=== PATIENT | female | born 1960 | race American Indian/Alaskan Native ===

== ENCOUNTER 2017-01-10 06:06 | Day surgery (SDC) | payer OTHER ==
[2017-01-10] MEDS ORDERED: XYLOCAINE MPF 2% ONE (07:10)
[2017-01-10] MEDS ORDERED: DIPRIVAN 10 MG/ML IV ONE (07:10)
[2017-01-10] MEDS ORDERED: DILAUDID ONE (07:11)
[2017-01-10] MEDS ORDERED: DECADRON ONE (07:11)
[2017-01-10] MEDS ORDERED: ZOFRAN ONE (07:11)
--- NOTE | 2017-01-10 07:22 | Anesthesia Day of Surgery ---
Anesthesia Day of Surgery - Day of Surgery Patient Examined: Yes Patient H&P Reviewed: Yes Patient is NPO: Yes
--- NOTE | 2017-01-10 07:22 | Anesthesia Consultation ---
Anesthesia Consult and Med Hx Date of service: 01/10/17 - Airway Anesthetic Teeth Evaluation: Good, Partials ROM Head & Neck: Adequate Mental/Hyoid Distance: Adequate Mallampati Class: Class II Intubation Access Assessment: Probably Good - Pulmonary Exam CTA: Yes - Cardiac Exam Cardiac Exam: RRR - Pre-Operative Health Status ASA Pre-Surgery Classification: ASA2 Proposed Anesthetic Plan: General - Endocrine Hx Renal Disease: Yes (kidney stones)
[2017-01-10] MEDS ORDERED: NACL BACTERIOSTATIC INFILTRATI ONE (07:49)
[2017-01-10] MEDS ORDERED: ZOFRAN IV PRN (08:00)
[2017-01-10] MEDS ORDERED: VERSED IV NR (08:00)
[2017-01-10] MEDS ORDERED: LACTATED RINGERS 1,000 ML IV SCH (08:00)
[2017-01-10] MEDS ORDERED: PEPCID PO NR (08:00)
[2017-01-10] MEDS ORDERED: FLAGYL 500 MG/100 ML 500 MG/100 ML BAG IV ONE (08:14)
[2017-01-10] MEDS ORDERED: DILAUDID IV PRN (08:30)
[2017-01-10] MEDS ORDERED: NORCO 5/325 PO PRN (08:30)
[2017-01-10] MEDS ORDERED: ROBINUL ONE (09:23)
[2017-01-10] MEDS ORDERED: NACL 0.9% 1000 ML 1,000 ML ONE (09:36)
[2017-01-10] MEDS ORDERED: WATER FOR IRRIG STERILE IR ONE (09:45)
--- NOTE | 2017-01-10 09:51 | Short Stay Summary ---
Short Stay Documentation Date of service: 01/10/17 - History H&P: obtained from office - Allergies and Medications Current Medications: Allergies codeine Adverse Reaction (Verified 01/10/17 07:19) Nausea Penicillins Adverse Reaction (Verified 01/10/17 07:20) Swelling sulfamethoxazole [From Bactrim] Adverse Reaction (Verified 01/10/17 07:20) Swelling trimethoprim [From Bactrim] Adverse Reaction (Verified 01/10/17 07:20) Swelling Active Medications Acetaminophen/Hydrocodone Bitart ([place] 5/325) 2 each PO ONCE PRN PRN Reason: Pain, Moderate (4-6) Stop: 01/10/17 16:00 Famotidine (Pepcid) 20 mg PO PREOP NR Stop: 01/10/17 21:00 Last Admin: 01/10/17 08:00 Dose: 20 mg Hydromorphone HCl (Dilaudid) 0.5 mg IV Q10MIN PRN PRN Reason: Pain , Severe (7-10) Stop: 01/10/17 15:00 Lactated Ringer's (Lactated Ringers) 1,000 mls @ 100 mls/hr IV DIRECT SAUL Last Admin: 01/10/17 07:55 Dose: 100 mls/hr Midazolam HCl (Versed) 2 mg IV PREOP NR Stop: 01/10/17 23:59 Last Admin: 01/10/17 08:03 Dose: 2 mg Ondansetron HCl (Zofran) 4 mg IV ONCE PRN PRN Reason: Nausea And Vomiting Stop: 01/10/17 16:00 - Brief post op/procedure progress note Date of procedure: 01/10/17 Pre-op diagnosis: lef renal stone Post-op diagnosis: same Procedure: cysto, rpg, left stent, eswl-----staged Anesthesia: GETA Surgeon: CEASAR RAIN Estimated blood loss: none Pathology: none Condition: stable - Hospital course Hospital course: pt has pain & abx med per ,post info on chart - Disposition Condition at discharge: Stable Disposition: DC-01 TO HOME OR SELFCARE Short Stay Discharge Plan Follow up with: MEGHAN JEFFERSON MD [Primary Care Provider] - 7 Days
--- NOTE | 2017-01-10 09:59 | Post Anesthesia Evaluation ---
- Post Anesthesia Evaluation Patient Participated: Yes Airway Patent: Yes Stable Respiratory Function: Yes Temp > 96.8F: Yes Pain Manageable: Yes Adequeate Hydration: Yes Anesthesia Complications: No
--- NOTE | 2017-01-10 10:11 | Operative Report ---
PREOPERATIVE DIAGNOSIS: Left renal stone, 15 mm. POSTOPERATIVE DIAGNOSES: Left renal stone, 15 mm. PROCEDURE PERFORMED: Cystoscopy, left retrograde pyelogram, left double-J stent with a short internal string (6-Estonian 24 cm); left extracorporal shockwave lithotripsy, staged procedure. SURGEON: Nicholas Sumner MD ANESTHESIA: General. ESTIMATED BLOOD LOSS: Minimal. FLUIDS: Crystalloid. COMPLICATIONS: No complications. INDICATIONS: This patient is a 56-year-old female who is seen by Dr. Velazquez in the office with back pain. CT abdomen and pelvis revealed a 15 mm left renal stone. She presents for lithotripsy. Due to the size of her stone, we will place a stent and she was informed that it may be a staged procedure. DESCRIPTION OF PROCEDURE: The patient was taken to the operative suite, placed in a supine position. After adequate general anesthesia, placed in a dorsal lithotomy position, prepped and draped in a sterile fashion. Pancystourethroscopy was performed with a 22 Estonian Storz cystoscope. No bladder pathology. Left retrograde pyelogram was obtained with an 8-Estonian Mentcle catheter and 8 mL of contrast. No filling defects or obstruction in the ureter, obvious stone in the lower pole. A 0.035 Glidewire was placed followed by 6-Estonian, 24 cm double-J stent with a short string. Bladder was drained. The patient was then positioned supinely, stone was localized in the 2 planes. Extracorporal shock wave lithotripsy was administered with a maximum kV of 5 and 3000 shocks. Renal pause after 200 shocks. There was some fragmentation of her stone. She tolerated the procedure well. She was extubated and taken to recovery room. JOB# [id number] CHARLIE/ZENAIDA
[2017-01-10 11:04] VITALS: BP 120/78
== END 2017-01-10 11:40 | disposition home or self-care (01) ==
LOC: OR 06:06
PROVIDERS: ATTEND Urology
DX: N20.0 Calculus of kidney (principal); F32.9 Major depressive disorder, single episode, unspecified; I10 Essential (primary) hypertension; Z98.84 Bariatric surgery status; Z87.440 Personal history of urinary (tract) infections; Z98.890 Other specified postprocedural states; Z79.899 Other long term (current) drug therapy; Z88.1 Allergy status to other antibiotic agents; Z88.5 Allergy status to narcotic agent; Z88.0 Allergy status to penicillin
CPT/HCPCS: 50590; 52332; A4217; C1758; C1769; C2617; J1100; J1170; J2250; J2405; J2704; J7030; J7120; Q9967

== ENCOUNTER 2017-04-11 09:08 | Day surgery (SDC) | payer OTHER ==
[2017-04-11] MEDS ORDERED: NACL BACTERIOSTATIC INFILTRATI ONE (09:51)
[2017-04-11] MEDS ORDERED: GARAMYCIN/NS 120MG/100ML 120 MG/100 ML BAG IV ONE (10:00)
[2017-04-11] MEDS ORDERED: CLEOCIN 600 MG/50 mL 600 MG/50 ML BAG IV NR ×2 (10:00→10:30)
[2017-04-11 10:08] LABS: Hematocrit 37.2 % (30.3-42.9); Hemoglobin 12.3 gm/dl (10.1-14.3)
[2017-04-11] MEDS ORDERED: NACL 0.9% 1000 ML 1,000 ML IV SCH (10:15)
--- NOTE | 2017-04-11 10:24 | Anesthesia Consultation ---
Anesthesia Consult and Med Hx Date of service: 04/11/17 - Airway Anesthetic Teeth Evaluation: Good ROM Head & Neck: Adequate Mental/Hyoid Distance: Adequate Mallampati Class: Class II Intubation Access Assessment: Good - Pulmonary Exam CTA: Yes - Cardiac Exam Cardiac Exam: No Murmur - Pre-Operative Health Status ASA Pre-Surgery Classification: ASA2 Proposed Anesthetic Plan: General - Pulmonary Hx Smoking: No Hx Asthma: No Hx Sleep Apnea: No (CAROL ANN PRE SCREEN LOW RISK) - Cardiovascular System Hx Hypertension: No - Central Nervous System Hx Psychiatric Problems: Yes (insomnia) - Endocrine Hx Liver Disease: No Hx Non-Insulin Dependent Diabetes: No - Hematic Hx Anemia: Yes - Other Systems Hx Cancer: No Hx Obesity: Yes
--- NOTE | 2017-04-11 10:25 | Anesthesia Day of Surgery ---
Anesthesia Day of Surgery - Day of Surgery Patient Examined: Yes Patient H&P Reviewed: Yes Patient is NPO: Yes
[2017-04-11] MEDS ORDERED: PEPCID IV NR (11:00)
[2017-04-11] MEDS ORDERED: VERSED IV NR (11:00)
[2017-04-11] MEDS ORDERED: DIPRIVAN 10 MG/ML IV ONE (11:02)
[2017-04-11] MEDS ORDERED: DILAUDID ONE (11:03)
[2017-04-11] MEDS ORDERED: XYLOCAINE MPF 2% ONE (11:18)
[2017-04-11] MEDS ORDERED: ZOFRAN ONE (11:56)
[2017-04-11] MEDS ORDERED: DECADRON ONE (11:56)
[2017-04-11] MEDS ORDERED: TORADOL ONE (11:57)
--- NOTE | 2017-04-11 12:05 | Short Stay Summary ---
Short Stay Documentation Date of service: 04/11/17 - History H&P: obtained from office - Allergies and Medications Current Medications: Allergies codeine Adverse Reaction (Verified 01/10/17 07:19) Nausea Penicillins Adverse Reaction (Verified 01/10/17 07:20) Swelling sulfamethoxazole [From Bactrim] Adverse Reaction (Verified 01/10/17 07:20) Swelling trimethoprim [From Bactrim] Adverse Reaction (Verified 01/10/17 07:20) Swelling Home Medications Medication Instructions Recorded Confirmed Last Taken Type Aspirin [Aspirin EC] 81 mg PO DAILY 02/04/17 04/11/17 04/06/17 History Ketorolac [Toradol] 10 mg PO Q6H PRN 02/04/17 04/03/17 01/28/17 History traMADol [Ultram] 50 mg PO Q6HR PRN 02/04/17 04/03/17 01/28/17 History Evening [place] Oil 500 mg PO QDAY 02/07/17 04/03/17 01/28/17 History Omeprazole [Omeprazole] 40 mg PO QDAY 02/07/17 04/03/17 02/05/17 History ALPRAZolam [Xanax] 1 mg PO TID 04/03/17 04/03/17 Unknown History Citalopram [celeXA] 20 mg PO QDAY 04/03/17 04/03/17 Unknown History Estrogens, Conjugated [Premarin] 0.625 mg PO QDAY 04/03/17 04/03/17 Unknown History Linaclotide (Nf) [Linzess (Nf)] 290 mcg PO QDAY 04/03/17 04/03/17 Unknown History Nitrofurantoin Nye/M-Cryst 100 mg PO DAILY 04/03/17 04/03/17 Unknown History [Macrobid CAP] Venlafaxine [Effexor 37.5mg tab] 37.5 mg PO QDAY 04/03/17 04/03/17 Unknown History Zolpidem [Ambien] 10 mg PO QHS 04/03/17 04/03/17 Unknown History oxyCODONE /ACETAMINOPHEN [Percocet 1 tab PO Q6HR PRN 04/03/17 04/03/17 Unknown History 5/325] Active Medications Famotidine (Pepcid) 20 mg IV PREOP NR Stop: 04/11/17 23:59 Last Admin: 04/11/17 10:34 Dose: 20 mg Clindamycin HCl (Cleocin 600 Mg/50 Ml) 600 mg in 50 mls @ 100 mls/hr IV PREOP NR PRN Reason: Protocol Stop: 04/11/17 12:30 Sodium Chloride (Nacl 0.9% 1000 Ml) 1,000 mls @ 100 mls/hr IV DIRECT SAUL Stop: 04/11/17 23:59 Last Admin: 04/11/17 10:32 Dose: 100 mls/hr Midazolam HCl (Versed) 2 mg IV PREOP NR Stop: 04/11/17 23:59 Last Admin: 04/11/17 10:36 Dose: 2 mg - Brief post op/procedure progress note Date of procedure: 04/11/17 Pre-op diagnosis: left renal stone Post-op diagnosis: same Procedure: eswl - staged Anesthesia: GETA Surgeon: CEASAR RAIN Estimated blood loss: none Condition: stable - Hospital course Hospital course: Dilaudid & post op info on chart - Disposition Condition at discharge: Stable Disposition: DC-01 TO HOME OR SELFCARE Short Stay Discharge Plan Follow up with: MEGHAN JEFFERSON MD [Primary Care Provider] - 7 Days
--- NOTE | 2017-04-11 12:50 | Operative Report ---
PREOPERATIVE DIAGNOSES: Left renal calculi, status post lithotripsy. POSTOPERATIVE DIAGNOSES: Left renal calculi, status post lithotripsy, as well as status post stent placement. PROCEDURE: Left extracorporal shock wave lithotripsy, staged procedure. SURGEON: Nicholas Sumner MD ANESTHESIA: General. ESTIMATED BLOOD LOSS: Minimal. FLUIDS: Crystalloid. COMPLICATIONS: No complications. INDICATIONS: This 56-year-old female who was seen in the office initially with Dr. Velazquez for a large 15 mm stone. She underwent cystoscopy, stent, lithotripsy. She continues to have residual fragments. Tomograms revealed multiple small fragments in the renal pelvis, approximately 3. She will undergo a [facility] metabolic workup and proceed now for lithotripsy. DESCRIPTION OF PROCEDURE: The patient was taken to the operative suite, placed in a supine position. After adequate general anesthesia, her stone was localized in 2 planes using fluoroscopy. Extracorporal shock wave lithotripsy was administered with maximum kV of 5 and 2500 shocks. Adequate fragmentation could be appreciated. The fragments appeared to all be in the same area in the renal pelvis. Renal pause after 2200 shocks was performed. The patient tolerated the procedure well. She was extubated and taken to recovery room. She will go home on Dilaudid and follow up in the office. JOB# [id number] CHARLIE/ZENAIDA
[2017-04-11] MEDS ORDERED: ZOFRAN IV ONE (13:53)
[2017-04-11 15:06] VITALS: BP 129/83
--- NOTE | 2017-04-11 15:30 | Post Anesthesia Evaluation ---
- Post Anesthesia Evaluation Patient Participated: Yes Airway Patent: Yes Stable Respiratory Function: Yes Nausea/Vomiting: No Temp > 96.8F: Yes Pain Manageable: Yes Adequeate Hydration: Yes Anesthesia Complications: No Block Receding Appropriately: Not Applicable Patient on Ventilator: No
== END 2017-04-11 14:55 | disposition home or self-care (01) ==
LOC: OR 09:08
PROVIDERS: ATTEND Urology
DX: N20.0 Calculus of kidney (principal); I10 Essential (primary) hypertension; G47.00 Insomnia, unspecified; E66.9 Obesity, unspecified; Z68.31 Body mass index [BMI] 31.0-31.9, adult; Z88.0 Allergy status to penicillin; Z88.5 Allergy status to narcotic agent; Z88.2 Allergy status to sulfonamides; Z88.8 Allergy status to other drugs, medicaments and biological substances; Z79.82 Long term (current) use of aspirin; Z79.899 Other long term (current) drug therapy; Z96.0 Presence of urogenital implants
CPT/HCPCS: 36415; 50590; 85014; 85018; J1100; J1170; J1580; J1885; J2250; J2405; J2704; J7030

== ENCOUNTER 2017-06-05 12:03 | Day surgery (SDC) | payer OTHER ==
[~2017-06-05 12:03] MED LIST: ANCEF/STERILE WATER 2 GM/20 ML 2 GM/20 ML SYRINGE IV NR; LEVAQUIN 500MG/100ML 500 MG/100 ML BAG IV NR
[2017-06-05 13:00] LABS: Basophils % (Auto) 0.6 % (0.0-1.8); Eosinophils # (Auto) 0.1 K/mm3 (0.0-0.4); Eosinophils % (Auto) 1.1 % (0.0-4.3); Hematocrit 37.7 % (30.3-42.9); Hemoglobin 12.1 gm/dl (10.1-14.3); Lymphocytes # (Auto) 1.6 K/mm3 (1.2-5.4); Lymphocytes % (Auto) 27.7 % (13.4-35.0); Mean Corpuscular HGB Conc 32 % (30-34); Mean Corpuscular Hemoglobin 30 pg (28-32); Mean Corpuscular Volume 94 fl (79-97); Monocytes # (Auto) 0.5 K/mm3 (0.0-0.8); Monocytes % (Auto) 8.4 % (0.0-7.3); Platelet Count 213 K/mm3 (140-440); Red Cell Distribution Width 13.4 % (13.2-15.2)
--- NOTE | 2017-06-05 13:48 | Anesthesia Consultation ---
Anesthesia Consult and Med Hx - Airway Anesthetic Teeth Evaluation: Good ROM Head & Neck: Adequate Mental/Hyoid Distance: Adequate Mallampati Class: Class II Intubation Access Assessment: Good - Pulmonary Exam CTA: Yes - Cardiac Exam Cardiac Exam: RRR - Pre-Operative Health Status ASA Pre-Surgery Classification: ASA2 Proposed Anesthetic Plan: General - Pulmonary Hx Smoking: No Hx Asthma: No Hx Sleep Apnea: No (CAROL ANN PRE SCREEN LOW RISK) - Cardiovascular System Hx Hypertension: No - Central Nervous System Hx Psychiatric Problems: Yes (insomnia) - Endocrine Hx Liver Disease: No Hx Non-Insulin Dependent Diabetes: No - Hematic Hx Anemia: Yes - Other Systems Hx Cancer: No Hx Obesity: Yes
[2017-06-05] MEDS ORDERED: NARCAN 0.4 MG/1 ML IV PRN (13:49)
[2017-06-05] MEDS ORDERED: DILAUDID IV PRN (13:49)
[2017-06-05] MEDS ORDERED: ZOFRAN IV PRN (13:49)
--- NOTE | 2017-06-05 13:49 | Anesthesia Day of Surgery ---
Anesthesia Day of Surgery - Day of Surgery Patient Examined: Yes Patient H&P Reviewed: Yes Patient is NPO: Yes
[2017-06-05] MEDS ORDERED: PEPCID IV NR (14:00)
[2017-06-05] MEDS ORDERED: LACTATED RINGERS 1,000 ML IV SCH (14:00)
[2017-06-05] MEDS ORDERED: SUBLIMAZE ONE (15:00)
[2017-06-05] MEDS ORDERED: DIPRIVAN 10 MG/ML IV ONE (15:00)
[2017-06-05] MEDS ORDERED: XYLOCAINE MPF 2% ONE (15:00)
--- NOTE | 2017-06-05 15:18 | Discharge Summary ---
Short Stay Discharge Plan Activity: other (no straining ) Weight Bearing Status: Full Weight Bearing Diet: regular Special Instructions: other (inc fluids ) Durable Medical Equipment Needed Upon Discharge: other (pt has j stent ) Follow up with: MEGHAN JEFFERSON MD [Primary Care Provider] - 7 Days JUSTUS VARGAS MD [Staff Physician] - 7 Days
--- NOTE | 2017-06-05 15:19 | Post Operative Note ---
Pre-op diagnosis: renal ureteral stone Post-op diagnosis: same Findings: stones Procedure: cysto rpgs ureteroscopy Anesthesia: RADHA Surgeon: JUSTUS VARGAS Estimated blood loss: none Pathology: none Condition: stable Disposition: PACU
[2017-06-05] MEDS ORDERED: OMNIPAQUE 300 MG/50 ML (CATH LAB) IV ONE (15:25)
[2017-06-05] MEDS ORDERED: DECADRON ONE (15:39)
[2017-06-05] MEDS ORDERED: ZOFRAN ONE (15:39)
[2017-06-05 18:53] VITALS: BP 115/68
--- NOTE | 2017-06-05 20:24 | Operative Report ---
PREOPERATIVE DIAGNOSES: Residual stones, previous lithotripsy. POSTOPERATIVE DIAGNOSES: Residual stones, previous lithotripsy. PROCEDURE: Cystoscopy, left stent exchange, left RPG, left ureteroscopy. SURGEON: Pancho Velazquez MD. ANESTHESIA: General. FINDINGS: This is a woman who has had a stent in for quite some time. She now presented for followup. All risks and implications discussed. It looks like there are some stones in the kidney and maybe along the stent. DESCRIPTION OF PROCEDURE: The patient brought to the operating room and placed on the operating table. Following induction of anesthesia, placed in lithotomy position, prepped and draped in usual sterile fashion. At this point, the stent was withdrawn from the meatus. A wire coiled up in the kidney. There was a loop in the upper ureter. This straightened out. At this point, a flexible ureteroscopy showed some narrowing at the intramural ureter at the level of the vessels and especially at the UPJ area. There was some inflammation. There were no stones seen. We could see into the kidney, but it was very tight and we did not want to push it. We tried with a second wire and once again got up to the UPJ, but it was inflamed and very tight probably because the stent was in so long. At this point, there were multiple small stones in the ureter, which were washed out. That were seen in the basin. We left a double J new one that will be removed in about 2 weeks. This was a 7-Nepalese coiled up in the kidney and bladder. The patient tolerated the procedure well. No significant complications, brought to recovery in stable condition. JOB# [id number] GILBERTO/ZENAIDA
--- NOTE | 2017-06-06 08:11 | Fluoroscopy Report ---
FLUORO RETROGRADE UROGRAPHY INDICATION: Left ureteral stone. COMPARISON: None similar at this institution. FINDINGS: Total of 6 submitted fluoroscopic images. Procedure performed by Dr. Velazquez. Omnipaque 300 utilized. Initial sales merchandiser radiographs obtained at 4:14 PM demonstrate left double-J ureteral stent. Nonobstructive bowel gas pattern. Third image demonstrates stent removal, wire placement and uteroscopy. Fourth and fifth images demonstrate mildly dilated opacified mid and lower intrarenal collecting systems as also prominent left proximal to mid ureter with multiple small persistent filling defects, possibly ureteritis cystica and/or air bubbles. Final image demonstrates repositioned left ureteral stent and mild residual intrarenal collecting system contrast. 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 Please also correlate with procedural notes. Thank you for the opportunity to participate in this patient's care.
== END 2017-06-05 17:50 | disposition home or self-care (01) ==
LOC: OR 12:03
PROVIDERS: ATTEND Urology
DX: N20.1 Calculus of ureter (principal); G47.00 Insomnia, unspecified; E66.9 Obesity, unspecified; Z68.31 Body mass index [BMI] 31.0-31.9, adult; Z88.0 Allergy status to penicillin; Z88.2 Allergy status to sulfonamides; Z88.8 Allergy status to other drugs, medicaments and biological substances; Z79.899 Other long term (current) drug therapy; Z88.5 Allergy status to narcotic agent
CPT/HCPCS: 36415; 52332; 74420; 85025; J1100; J1956; J2405; J2704; J3010; J7120; Q9967